=== PATIENT | male | born 1935 | race Caucasian/White ===

== ENCOUNTER → 2016-07-28 | Outpatient (REF) | payer MEDICARE | LOC: M LABDRAW1 15:35 | PROVIDERS: ATTEND Emergency Medicine | DX: R73.01 Impaired fasting glucose (principal) ==

== ENCOUNTER → 2016-10-19 | Outpatient (CLI) | payer MEDICARE ==
[2016-10-19 10:35] LABS: BASO % 0.6 % (0.0-1.0); EOS # 0.2 K/mm3 (0.0-0.50); EOS % 3.5 % (0.0-3.0); LARGE UNSTAINED CELL # 0.1 K/mm3 (0.0-0.4); LYMPH # 1.6 K/mm3 (1.5-4.5); LYMPH % 26.4 % (24.0-44.0); MEAN CORPUSCULAR HEMOGLOBIN 30.3 pg (27.0-33.0); MEAN CORPUSCULAR VOLUME 91.6 fl (80.0-96.0); MONO # 0.4 K/mm3 (0.0-0.8); MONO % 7.1 % (0.0-5.0); NEUTROPHILS # 3.4 K/mm3 (1.8-7.7); NEUTROPHILS % 60.4 % (36.0-66.0); PLATELET COUNT, AUTOMATED 149 k/mm3 (150-450); RED CELL DISTRIBUTION WIDTH 13.9 % (11.5-14.5); WHITE BLOOD COUNT 5.6 K/mm3 (4.0-10.0)
[2016-10-19 10:50] LABS: ALBUMIN 4.1 GM/DL (3.2-5.2); ALBUMIN/GLOBULIN RATIO 1.71 (1.00-1.93); ALKALINE PHOSPHATASE 57 U/L (45-117); ALT/SGPT 44 U/L (12-78); ANION GAP 7 MEQ/L (8-16); AST/SGOT 22 U/L (15-37); BILIRUBIN,TOTAL 2.4 MG/DL (0.2-1.0); BLOOD UREA NITROGEN 15 MG/DL (7-18); CALCIUM LEVEL 9.2 MG/DL (8.8-10.2); CARBON DIOXIDE LEVEL 28 MEQ/L (21-32); CHLORIDE LEVEL 106 MEQ/L (98-107); CHOLESTEROL LEVEL 115 MG/DL (<200); CREATININE FOR GFR 0.82 MG/DL (0.70-1.30); GLOMERULAR FILTRATION RATE > 60.0 (>42); GLUCOSE, FASTING 122 MG/DL (83-110); POTASSIUM SERUM 4.2 MEQ/L (3.5-5.1); SODIUM LEVEL 141 MEQ/L (136-145); TOTAL PROTEIN 6.5 GM/DL (6.4-8.2); TRIGLYCERIDES LEVEL 51 MG/DL (<150)
== END ==
LOC: M LAB 09:28
PROVIDERS: ATTEND Emergency Medicine
DX: E11.9 Type 2 diabetes mellitus without complications (principal); I63.02 Cerebral infarction due to thrombosis of basilar artery

== ENCOUNTER → 2016-11-29 | Outpatient (CLI) | payer MEDICARE | LOC: M WUC 11:49 | PROVIDERS: ATTEND Urology | DX: Z12.5 Encounter for screening for malignant neoplasm of prostate (principal) | CPT/HCPCS: 36415; G0103 ==

== ENCOUNTER → 2017-04-28 | Outpatient (REF) | payer MEDICARE ==
[2017-04-28 12:04] LABS: BASO % 0.7 % (0.0-1.0); EOS # 0.2 10^3/uL (0.0-0.50); EOS % 3.2 % (0.0-3.0); IMMATURE GRANULOCYTE % 0.2 % (0-0); LYMPH # 1.7 10^3/uL (1.5-4.5); LYMPH % 28.1 % (24.0-44.0); MEAN CORPUSCULAR HEMOGLOBIN 30.2 pg (27.0-33.0); MEAN CORPUSCULAR HGB CONC 33.3 g/dl (32.0-36.5); MEAN CORPUSCULAR VOLUME 90.7 fl (80.0-96.0); MONO # 0.5 10^3/uL (0.0-0.8); MONO % 8.8 % (0.0-5.0); NEUTROPHILS # 3.5 10^3/uL (1.8-7.7); PLATELET COUNT, AUTOMATED 161 10^3/uL (150-450); RED CELL DISTRIBUTION WIDTH 13.9 % (11.5-14.5); WHITE BLOOD COUNT 5.9 10^3/uL (4.0-10.0)
[2017-04-28 12:29] LABS: ALBUMIN 3.9 GM/DL (3.2-5.2); ALKALINE PHOSPHATASE 53 U/L (45-117); ALT/SGPT 40 U/L (12-78); ANION GAP 7 MEQ/L (8-16); AST/SGOT 17 U/L (15-37); BILIRUBIN,TOTAL 2.5 MG/DL (0.2-1.0); BLOOD UREA NITROGEN 15 MG/DL (7-18); CALCIUM LEVEL 9.2 MG/DL (8.8-10.2); CARBON DIOXIDE LEVEL 28 MEQ/L (21-32); CHLORIDE LEVEL 106 MEQ/L (98-107); CHOLESTEROL LEVEL 111 MG/DL (<200); CREATININE FOR GFR 0.73 MG/DL (0.70-1.30); GLOMERULAR FILTRATION RATE > 60.0 (>42); GLUCOSE, FASTING 115 MG/DL (83-110); POTASSIUM SERUM 4.3 MEQ/L (3.5-5.1); SODIUM LEVEL 141 MEQ/L (136-145); TOTAL PROTEIN 6.5 GM/DL (6.4-8.2); TRIGLYCERIDES LEVEL 58 MG/DL (<150)
== END ==
LOC: M LAB REF 11:26
PROVIDERS: ATTEND Emergency Medicine
DX: E11.9 Type 2 diabetes mellitus without complications (principal); I63.02 Cerebral infarction due to thrombosis of basilar artery

== ENCOUNTER → 2017-11-04 | Outpatient (REF) | payer MEDICARE ==
[2017-11-04 11:59] LABS: BASO % 0.6 % (0.0-1.0); EOS # 0.3 10^3/uL (0.0-0.50); EOS % 3.6 % (0.0-3.0); HEMATOCRIT 47.3 % (42.0-52.0); HEMOGLOBIN 15.9 g/dl (13.5-17.5); IMMATURE GRANULOCYTE % 0.4 % (0-3.0); LYMPH # 2.1 10^3/uL (1.5-4.5); LYMPH % 28.9 % (24.0-44.0); MEAN CORPUSCULAR HEMOGLOBIN 30.2 pg (27.0-33.0); MEAN CORPUSCULAR HGB CONC 33.6 g/dl (32.0-36.5); MEAN CORPUSCULAR VOLUME 89.8 fl (80.0-96.0); MONO # 0.6 10^3/uL (0.0-0.8); MONO % 8.8 % (0.0-5.0); NEUTROPHILS # 4.1 10^3/uL (1.8-7.7); NEUTROPHILS % 57.7 % (36.0-66.0); PLATELET COUNT, AUTOMATED 149 10^3/uL (150-450); RED BLOOD COUNT 5.27 10^6/uL (4.30-6.10); WHITE BLOOD COUNT 7.2 10^3/uL (4.0-10.0)
[2017-11-04 12:18] LABS: ALBUMIN 4.1 GM/DL (3.2-5.2); ALBUMIN/GLOBULIN RATIO 1.41 (1.00-1.93); ALKALINE PHOSPHATASE 58 U/L (45-117); ALT/SGPT 40 U/L (12-78); ANION GAP 6 MEQ/L (8-16); AST/SGOT 21 U/L (7-37); BILIRUBIN,TOTAL 2.6 MG/DL (0.2-1.0); BLOOD UREA NITROGEN 15 MG/DL (7-18); CALCIUM LEVEL 9.3 MG/DL (8.8-10.2); CARBON DIOXIDE LEVEL 30 MEQ/L (21-32); CHLORIDE LEVEL 107 MEQ/L (98-107); CHOLESTEROL LEVEL 113 MG/DL (<200); CHOLESTEROL RISK RATIO 1.712 (<5); CREATININE FOR GFR 0.89 MG/DL (0.70-1.30); GLOMERULAR FILTRATION RATE > 60.0 (>35); GLUCOSE, FASTING 118 MG/DL (70-100); HDL CHOLESTEROL 66 MG/DL (>40); LDL CHOLESTEROL 36.2 MG/DL (<100); NON-HDL-C 47 MG/DL; POTASSIUM SERUM 3.9 MEQ/L (3.5-5.1); SODIUM LEVEL 143 MEQ/L (136-145); TRIGLYCERIDES LEVEL 54 MG/DL (<150)
[2017-11-04 12:59] LABS: ESTIMATED AVERAGE GLUCOSE 128 MG/DL (60-110); HEMOGLOBIN A1c 6.1 %
== END ==
LOC: M LAB REF 11:45
DX: E11.9 Type 2 diabetes mellitus without complications (principal); I63.02 Cerebral infarction due to thrombosis of basilar artery
CPT/HCPCS: 80053

== ENCOUNTER → 2017-12-06 | Outpatient (REF) | payer MEDICARE | LOC: M LABDRAWC 11:38 | DX: Z12.5 Encounter for screening for malignant neoplasm of prostate (principal); R35.1 Nocturia | CPT/HCPCS: 84153 ==

== ENCOUNTER → 2018-05-09 | Outpatient (REF) | payer MEDICARE ==
[2018-05-09 11:53] LABS: BASO % 0.5 % (0.0-1.0); EOS # 0.2 10^3/uL (0.0-0.50); EOS % 2.6 % (0.0-3.0); HEMATOCRIT 48.8 % (42.0-52.0); HEMOGLOBIN 15.9 g/dl (13.5-17.5); IMMATURE GRANULOCYTE % 0.4 % (0-3.0); LYMPH # 1.9 10^3/uL (1.5-4.5); LYMPH % 33.3 % (24.0-44.0); MEAN CORPUSCULAR HEMOGLOBIN 30.2 pg (27.0-33.0); MEAN CORPUSCULAR HGB CONC 32.6 g/dl (32.0-36.5); MEAN CORPUSCULAR VOLUME 92.6 fl (80.0-96.0); MONO # 0.5 10^3/uL (0.0-0.8); MONO % 7.9 % (0.0-5.0); NEUTROPHILS # 3.1 10^3/uL (1.8-7.7); NEUTROPHILS % 55.3 % (36.0-66.0); PLATELET COUNT, AUTOMATED 148 10^3/uL (150-450); RED BLOOD COUNT 5.27 10^6/uL (4.30-6.10); RED CELL DISTRIBUTION WIDTH 13.9 % (11.5-14.5); WHITE BLOOD COUNT 5.7 10^3/uL (4.0-10.0)
[2018-05-09 19:17] LABS: ALBUMIN/GLOBULIN RATIO 1.48 (1.00-1.93); ALKALINE PHOSPHATASE 59 U/L (45-117); ALT/SGPT 40 U/L (12-78); ANION GAP 11 MEQ/L (8-16); AST/SGOT 24 U/L (7-37); BILIRUBIN,TOTAL 2.5 MG/DL (0.2-1.0); BLOOD UREA NITROGEN 16 MG/DL (7-18); CALCIUM LEVEL 9.3 MG/DL (8.8-10.2); CARBON DIOXIDE LEVEL 25 MEQ/L (21-32); CHLORIDE LEVEL 106 MEQ/L (98-107); CHOLESTEROL LEVEL 115 MG/DL (<200); CHOLESTEROL RISK RATIO 1.796 (<5); CREATININE FOR GFR 0.89 MG/DL (0.70-1.30); GLOMERULAR FILTRATION RATE > 60.0 (>35); GLUCOSE, FASTING 119 MG/DL (70-100); HDL CHOLESTEROL 64 MG/DL (>40); LDL CHOLESTEROL 40 MG/DL (<100); NON-HDL-C 51 MG/DL; POTASSIUM SERUM 4.1 MEQ/L (3.5-5.1); SODIUM LEVEL 142 MEQ/L (136-145); TOTAL PROTEIN 6.7 GM/DL (6.4-8.2); TRIGLYCERIDES LEVEL 57 MG/DL (<150)
[2018-05-09 23:35] LABS: ESTIMATED AVERAGE GLUCOSE 134 MG/DL (60-110); HEMOGLOBIN A1c 6.3 %
== END ==
LOC: M LABDRAWC 07:43
DX: E11.9 Type 2 diabetes mellitus without complications (principal); I63.02 Cerebral infarction due to thrombosis of basilar artery
CPT/HCPCS: 80053

== ENCOUNTER → 2018-10-26 | Outpatient (REF) | payer MEDICARE ==
[2018-10-26 12:42] LABS: BASO % 0.7 % (0.0-1.0); EOS # 0.2 10^3/uL (0.0-0.50); EOS % 3.3 % (0.0-3.0); HEMATOCRIT 46.7 % (42.0-52.0); HEMOGLOBIN 15.6 g/dl (13.5-17.5); LYMPH # 1.7 10^3/uL (1.5-4.5); LYMPH % 28.9 % (24.0-44.0); MEAN CORPUSCULAR HEMOGLOBIN 30.2 pg (27.0-33.0); MEAN CORPUSCULAR HGB CONC 33.4 g/dl (32.0-36.5); MEAN CORPUSCULAR VOLUME 90.5 fl (80.0-96.0); MONO # 0.5 10^3/uL (0.0-0.8); MONO % 8.4 % (0.0-5.0); NEUTROPHILS # 3.3 10^3/uL (1.8-7.7); NEUTROPHILS % 58.2 % (36.0-66.0); PLATELET COUNT, AUTOMATED 137 10^3/uL (150-450); RED BLOOD COUNT 5.16 10^6/uL (4.30-6.10); WHITE BLOOD COUNT 5.7 10^3/uL (4.0-10.0)
[2018-10-26 12:45] LABS: ALT/SGPT 38 U/L (12-78); BILIRUBIN,TOTAL 2.4 MG/DL (0.2-1.0); BLOOD UREA NITROGEN 17 MG/DL (7-18); CALCIUM LEVEL 9.1 MG/DL (8.8-10.2); CARBON DIOXIDE LEVEL 27 MEQ/L (21-32); CHLORIDE LEVEL 108 MEQ/L (98-107); CHOLESTEROL LEVEL 121 MG/DL (<200); CHOLESTEROL RISK RATIO 1.779 (<5); GLOMERULAR FILTRATION RATE > 60.0 (>35); GLUCOSE, FASTING 127 MG/DL (70-100); HDL CHOLESTEROL 68 MG/DL (>40); LDL CHOLESTEROL 44 MG/DL (<100); NON-HDL-C 53 MG/DL; POTASSIUM SERUM 4.2 MEQ/L (3.5-5.1); SODIUM LEVEL 141 MEQ/L (136-145); TOTAL PROTEIN 6.6 GM/DL (6.4-8.2); TRIGLYCERIDES LEVEL 43 MG/DL (<150)
[2018-10-26 13:27] LABS: HEMOGLOBIN A1c 6.4 %
== END ==
LOC: M LABDRAWC 11:46
PROVIDERS: ATTEND Emergency Medicine
DX: E11.9 Type 2 diabetes mellitus without complications (principal); I63.02 Cerebral infarction due to thrombosis of basilar artery

== ENCOUNTER → 2018-12-04 | Outpatient (REF) | payer MEDICARE | LOC: M LABDRAWC 11:30 | PROVIDERS: ATTEND Urology | DX: R97.20 Elevated prostate specific antigen [PSA] (principal) ==

== ENCOUNTER → 2019-05-03 | Outpatient (REF) | payer MEDICARE ==
[2019-05-03 12:03] LABS: BASO % 0.6 % (0.0-1.0); EOS # 0.2 10^3/uL (0.0-0.5); HEMATOCRIT 47.2 % (42.0-52.0); HEMOGLOBIN 15.5 g/dl (13.5-17.5); LYMPH # 1.7 10^3/uL (1.5-5.0); LYMPH % 31.4 % (24.0-44.0); MEAN CORPUSCULAR HEMOGLOBIN 30.1 pg (27.0-33.0); MEAN CORPUSCULAR HGB CONC 32.8 g/dl (32.0-36.5); MEAN CORPUSCULAR VOLUME 91.7 fl (80.0-96.0); MONO # 0.5 10^3/uL (0.0-0.8); MONO % 8.9 % (0.0-5.0); NEUTROPHILS % 55.7 % (36.0-66.0); PLATELET COUNT, AUTOMATED 128 10^3/uL (150-450); RED BLOOD COUNT 5.15 10^6/uL (4.30-6.10); WHITE BLOOD COUNT 5.4 10^3/uL (4.0-10.0)
[2019-05-03 12:07] LABS: ALBUMIN 3.9 GM/DL (3.2-5.2); ALT/SGPT 43 U/L (12-78); BILIRUBIN,TOTAL 2.3 MG/DL (0.2-1.0); BLOOD UREA NITROGEN 16 MG/DL (7-18); CALCIUM LEVEL 9.3 MG/DL (8.8-10.2); CARBON DIOXIDE LEVEL 31 MEQ/L (21-32); CHLORIDE LEVEL 108 MEQ/L (98-107); CHOLESTEROL LEVEL 109 MG/DL (<200); CHOLESTEROL RISK RATIO 1.626 (<5); CREATININE FOR GFR 0.88 MG/DL (0.70-1.30); GLOMERULAR FILTRATION RATE > 60.0 (>35); GLUCOSE, FASTING 128 MG/DL (70-100); HDL CHOLESTEROL 67 MG/DL (>40); LDL CHOLESTEROL 31 MG/DL (<100); NON-HDL-C 42 MG/DL; SODIUM LEVEL 142 MEQ/L (136-145); TOTAL PROTEIN 6.7 GM/DL (6.4-8.2); TRIGLYCERIDES LEVEL 55 MG/DL (<150)
[2019-05-03 12:59] LABS: HEMOGLOBIN A1c 6.4 %
[2019-05-03 17:24] LABS: CREATININE, URINE 86.7 MG/DL; MALB URINE SIEMENS 20.8 MG/L; MAU/CREAT RATIO 23.9 MCG/MG (0.0-30.0)
== END ==
LOC: M LABDRAWC 11:06
PROVIDERS: ATTEND Physician Assistant
DX: E11.69 Type 2 diabetes mellitus with other specified complication (principal); E78.2 Mixed hyperlipidemia; I48.0 Paroxysmal atrial fibrillation

== ENCOUNTER → 2019-06-11 | Outpatient (REF) | payer MEDICARE | LOC: M LABDRAWC 11:15 | PROVIDERS: ATTEND Urology | DX: R97.20 Elevated prostate specific antigen [PSA] (principal) ==

== ENCOUNTER → 2019-12-19 | Outpatient (REF) | payer MEDICARE ==
[2019-12-19 12:19] LABS: ALBUMIN 4.2 GM/DL (3.2-5.2); ALT/SGPT 60 U/L (12-78); BILIRUBIN,TOTAL 3.4 MG/DL (0.2-1.0); BLOOD UREA NITROGEN 15 MG/DL (7-18); CALCIUM LEVEL 9.2 MG/DL (8.8-10.2); CARBON DIOXIDE LEVEL 28 MEQ/L (21-32); CHLORIDE LEVEL 107 MEQ/L (98-107); CREATININE FOR GFR 0.92 MG/DL (0.70-1.30); GLOMERULAR FILTRATION RATE > 60.0 (>35); GLUCOSE, FASTING 133 MG/DL (70-100); SODIUM LEVEL 142 MEQ/L (136-145); TOTAL PROTEIN 6.8 GM/DL (6.4-8.2)
[2019-12-19 13:04] LABS: HEMOGLOBIN A1c 6.6 %
== END ==
LOC: M LABDRAWC 10:51
PROVIDERS: ATTEND Physician Assistant
DX: E11.69 Type 2 diabetes mellitus with other specified complication (principal)

== ENCOUNTER → 2020-03-13 | Outpatient (REF) | payer MEDICARE ==
[2020-03-13 15:14] LABS: BLOOD UREA NITROGEN 15 MG/DL (7-18); CALCIUM LEVEL 9.4 MG/DL (8.8-10.2); CARBON DIOXIDE LEVEL 27 MEQ/L (21-32); CHLORIDE LEVEL 107 MEQ/L (98-107); CREATININE FOR GFR 0.92 MG/DL (0.70-1.30); GLOMERULAR FILTRATION RATE > 60.0 (>35); GLUCOSE, FASTING 122 MG/DL (70-100); POTASSIUM SERUM 3.9 MEQ/L (3.5-5.1); SODIUM LEVEL 140 MEQ/L (136-145)
[2020-03-13 15:40] LABS: HEMOGLOBIN A1c 6.4 %
[2020-03-13 20:18] LABS: CREATININE, URINE 88.5 MG/DL; MALB URINE SIEMENS 90.2 MG/L; MAU/CREAT RATIO 101.9 MCG/MG (0.0-30.0)
== END ==
LOC: M LABDRAWC 07:45
PROVIDERS: ATTEND Nurse Practitioner Family
DX: E11.69 Type 2 diabetes mellitus with other specified complication (principal); I10 Essential (primary) hypertension

== ENCOUNTER → 2021-03-18 | Outpatient (REF) | payer MEDICARE ==
[2021-03-18 17:36] LABS: CREATININE, URINE 88.6 MG/DL; MAU/CREAT RATIO 68.8 MCG/MG (0.0-30.0)
== END ==
LOC: M LAB REF 15:47
PROVIDERS: ATTEND Family Medicine
DX: E11.69 Type 2 diabetes mellitus with other specified complication (principal)

== ENCOUNTER → 2021-08-13 | Outpatient (CLI) | payer MEDICARE | LOC: M CLY 09:16 | PROVIDERS: ATTEND Family Medicine | DX: R06.02 Shortness of breath (principal) ==

== ENCOUNTER 2021-09-02 07:48 | Observation (INO) | payer MEDICARE ==
[2021-09-02 08:31] LABS: BASO % 0.7 % (0.0-1.0); EOS # 0.1 10^3/uL (0.0-0.5); EOS % 0.9 % (0.0-3.0); HEMATOCRIT 47.4 % (42.0-52.0); HEMOGLOBIN 15.3 g/dl (13.5-17.5); LYMPH # 0.7 10^3/uL (1.5-5.0); LYMPH % 12.6 % (24.0-44.0); MEAN CORPUSCULAR HEMOGLOBIN 28.8 pg (27.0-33.0); MEAN CORPUSCULAR HGB CONC 32.3 g/dl (32.0-36.5); MEAN CORPUSCULAR VOLUME 89.1 fl (80.0-96.0); MONO # 0.3 10^3/uL (0.0-0.8); MONO % 5.6 % (2.0-8.0); NEUTROPHILS # 4.7 10^3/uL (1.5-8.5); NEUTROPHILS % 79.9 % (36.0-66.0); PLATELET COUNT, AUTOMATED 116 10^3/uL (150-450); RED BLOOD COUNT 5.32 10^6/uL (4.30-6.10); WHITE BLOOD COUNT 5.9 10^3/uL (4.0-10.0)
[2021-09-02] MEDS ORDERED: FINA5TAB2 PO (08:34)
[2021-09-02] MEDS ORDERED: ELIQ5TAB PO (08:34)
[2021-09-02] MEDS ORDERED: METO1TAB87 PO (08:34)
[2021-09-02] MEDS ORDERED: ATOR40TA75 PO (08:34)
[2021-09-02] MEDS ORDERED: LISI5TAB11 PO (08:34)
[2021-09-02] MEDS ORDERED: DOCU-160 PO (08:34)
[2021-09-02] MEDS ORDERED: B-12100010 PO (08:34)
[2021-09-02] MEDS ORDERED: MULT1TAB8 PO (08:34)
[2021-09-02 08:40] LABS: INR 1.29; PROTHROMBIN TIME 16.5 SECONDS (12.7-14.5)
[2021-09-02 08:41] LABS: PARTIAL THROMBOPLASTIN TIME 35.9 SECONDS (25.9-37.0)
[2021-09-02 09:11] LABS: RSV AMPLIFICATION NEGATIVE (NEGATIVE)
[2021-09-02] MEDS ORDERED: METOPROLOL TART 25 MG TABLET PO ONE (09:25)
[2021-09-02] MEDS ORDERED: ISOVUE-370 76% 100ML VIAL As Ordered ONE (09:25)
[2021-09-02] MEDS ORDERED: APIXABAN 5 MG TAB (ELIQUIS) PO ONE (09:25)
[2021-09-02] MEDS ORDERED: PILL CUTTER 1 EACH XX ONE ×2 (09:55→09:56)
[2021-09-02] MEDS ORDERED: hydrALAZINE 20MG/ML 1ML VIAL (J0360 PER 20MG) IV PRN ×2 (12:15→17:30)
[2021-09-02] MEDS ORDERED: HOME MED LIST COMPLETE! XX SCH (16:45)
[2021-09-02] MEDS ORDERED: ALBU8.5H INH (16:45)
[2021-09-02] MEDS ORDERED: ALBUTEROL 90 MCG/ACT 8GM HFA INHALER INH PRN (16:55)
[2021-09-02] MEDS ORDERED: ACETAMINOPHEN TAB 650MG DOSE (2X325MG) PO PRN (17:30)
[2021-09-02] MEDS ORDERED: ASPIRIN 81 MG CHEW TABLET PO ONE (17:30)
[2021-09-02 18:23] LABS: CHOLESTEROL RISK RATIO 1.614 (<5); MAGNESIUM LEVEL 2.1 MG/DL (1.8-2.4)
[2021-09-02 19:46] LABS: HEMOGLOBIN A1c 6.5 %
[2021-09-02] MEDS ORDERED: ATORVASTATIN 20 MG TAB PO SCH ×2 (21:00)
[2021-09-02 21:07] VITALS: BP 138/90
[2021-09-02] MEDS: METOPROLOL TART 12.5 MG PER 1/2 TAB PO SCH (21:15)
[2021-09-02] MEDS: APIXABAN 5 MG TAB (ELIQUIS) PO SCH (21:16)
[2021-09-03 00:10] VITALS: BP 156/86
[2021-09-03 04:00] LABS: HEMATOCRIT 42.3 % (42.0-52.0); HEMOGLOBIN 13.7 g/dl (13.5-17.5); MEAN CORPUSCULAR HGB CONC 32.4 g/dl (32.0-36.5); MEAN CORPUSCULAR VOLUME 89.4 fl (80.0-96.0); PLATELET COUNT, AUTOMATED 105 10^3/uL (150-450); RED BLOOD COUNT 4.73 10^6/uL (4.30-6.10); WHITE BLOOD COUNT 5.1 10^3/uL (4.0-10.0)
[2021-09-03 04:13] LABS: BLOOD UREA NITROGEN 17 MG/DL (7-18); CALCIUM LEVEL 8.7 MG/DL (8.8-10.2); CARBON DIOXIDE LEVEL 28 MEQ/L (21-32); CHLORIDE LEVEL 108 MEQ/L (98-107); CREATININE FOR GFR 0.98 MG/DL (0.70-1.30); GLOMERULAR FILTRATION RATE > 60.0 (>35); GLUCOSE, FASTING 114 MG/DL (70-100); MAGNESIUM LEVEL 1.9 MG/DL (1.8-2.4); POTASSIUM SERUM 3.9 MEQ/L (3.5-5.1); SODIUM LEVEL 142 MEQ/L (136-145)
[2021-09-03 04:17] VITALS: BP 145/90
[2021-09-03 08:00] VITALS: BP 150/98
[2021-09-03] MEDS ORDERED: ASPI81CH8 PO (08:31)
[2021-09-03] MEDS ORDERED: ATOR80TA59 PO (08:31)
[2021-09-03] MEDS: METOPROLOL TART 12.5 MG PER 1/2 TAB PO SCH (08:58)
[2021-09-03 08:59] VITALS: BP 158/98
[2021-09-03] MEDS ORDERED: ASPIRIN 81 MG CHEW TABLET PO SCH (09:00)
[2021-09-03] MEDS ORDERED: lisinopriL 5 MG TAB PO SCH (09:00)
[2021-09-03] MEDS ORDERED: DOCUSATE SODIUM 100MG CAPSULE PO SCH (09:00)
[2021-09-03] MEDS ORDERED: FINASTERIDE 5 MG TAB PO SCH (09:00)
[2021-09-03] MEDS ORDERED: CYANOCOBALAMIN 500 MCG TAB PO SCH (09:00)
[2021-09-03] MEDS: APIXABAN 5 MG TAB (ELIQUIS) PO SCH (09:00)
== END 2021-09-03 10:41 | disposition home or self-care (01) ==
LOC: M ED 07:48 → M ED INP 07:49 → ENRESERV 19:43 → M PCU 20:59
PROVIDERS: ADMIT Internal Medicine; ATTEND Internal Medicine
DX: I63.89 Other cerebral infarction (principal); I16.0 Hypertensive urgency; I48.20 Chronic atrial fibrillation, unspecified; E78.5 Hyperlipidemia, unspecified; N40.0 Benign prostatic hyperplasia without lower urinary tract symptoms; I10 Essential (primary) hypertension; K59.09 Other constipation; E53.8 Deficiency of other specified B group vitamins; R60.0 Localized edema; Z86.73 Personal history of transient ischemic attack (TIA), and cerebral infarction without residual deficits; Z79.899 Other long term (current) drug therapy; Z79.82 Long term (current) use of aspirin; Z79.01 Long term (current) use of anticoagulants; Z88.1 Allergy status to other antibiotic agents
CPT/HCPCS: 36415; 70450; 70496; 70498; 70551; 71045; 80047; 80048; 80061; 83036; 83735; 84484; 85025; 85027; 85610; 85730; 87631; 93005; 93041; 93971; 94760; 97116; 97161; 99285; G0378; Q9967

== ENCOUNTER → 2021-09-04 | Outpatient (CLI) | payer MEDICARE ==
[~2021-09-04] MED LIST: ALBU8.5H INH; ASPI81CH8 PO; ATOR40TA75 PO; ATOR80TA59 PO; B-12100010 PO; DOCU-160 PO; ELIQ5TAB PO; FINA5TAB2 PO; LISI5TAB11 PO; METO1TAB87 PO; MULT1TAB8 PO
== END ==
LOC: M CARPUL 11:05
PROVIDERS: ATTEND Nurse Practitioner Family
DX: I48.91 Unspecified atrial fibrillation (principal)

== ENCOUNTER → 2021-10-27 | Outpatient (REF) | payer MEDICARE ==
[2021-10-27 17:57] LABS: ALBUMIN 3.8 GM/DL (3.2-5.2); ALT/SGPT 42 U/L (12-78); BILIRUBIN,TOTAL 3.6 MG/DL (0.2-1.0); BLOOD UREA NITROGEN 24 MG/DL (7-18); CALCIUM LEVEL 9.3 MG/DL (8.8-10.2); CARBON DIOXIDE LEVEL 29 MEQ/L (21-32); CHLORIDE LEVEL 105 MEQ/L (98-107); CREATININE FOR GFR 1.14 MG/DL (0.70-1.30); FREE T4 1.09 NG/DL (0.76-1.46); GLOMERULAR FILTRATION RATE > 60.0 (>35); GLUCOSE, FASTING 163 MG/DL (70-100); POTASSIUM SERUM 4.2 MEQ/L (3.5-5.1); SODIUM LEVEL 140 MEQ/L (136-145); TOTAL PROTEIN 6.4 GM/DL (6.4-8.2)
== END ==
LOC: M LABDRAWC 15:34
PROVIDERS: ATTEND Nurse Practitioner Family
DX: R94.5 Abnormal results of liver function studies (principal); E04.1 Nontoxic single thyroid nodule

== ENCOUNTER → 2021-11-03 | Outpatient (CLI) | payer MEDICARE | LOC: M WHC 13:57 | PROVIDERS: ATTEND Nurse Practitioner Family | DX: E04.1 Nontoxic single thyroid nodule (principal) ==

== ENCOUNTER → 2022-01-13 | Outpatient (CLI) | payer MEDICARE | LOC: M WHC 01-08 13:37 | PROVIDERS: ATTEND Nurse Practitioner Family | DX: R10.2 Pelvic and perineal pain (principal) ==

== ENCOUNTER → 2022-01-19 | Outpatient (CLI) | payer MEDICARE | LOC: M CLY 09:47 | PROVIDERS: ATTEND Nurse Practitioner Family | DX: R29.6 Repeated falls (principal) ==

== ENCOUNTER → 2022-06-14 | Outpatient (REF) | payer MEDICARE ==
[2022-06-14 13:36] LABS: CHLORIDE LEVEL 104 MMOL/L (98-107); SODIUM LEVEL 142 MMOL/L (136-145)
[2022-06-14 13:37] LABS: CARBON DIOXIDE LEVEL 26 MMOL/L (20-31)
[2022-06-14 13:40] LABS: BLOOD UREA NITROGEN 23 MG/DL (9-23)
[2022-06-14 13:42] LABS: CALCIUM LEVEL 9.6 MG/DL (8.3-10.6); GLUCOSE, FASTING 122 MG/DL (74-106)
[2022-06-14 13:44] LABS: CREATININE FOR GFR 0.93 MG/DL (0.70-1.30); GLOMERULAR FILTRATION RATE > 60.0 (>35)
[2022-06-14 13:52] LABS: POTASSIUM SERUM 4.2 MMOL/L (3.5-5.1)
[2022-06-14 14:15] LABS: CREATININE, URINE 76.3 MG/DL
[2022-06-14 14:16] LABS: MAU/CREAT RATIO 22.2 MCG/MG (0.0-30.0)
[2022-06-14 19:57] LABS: HEMOGLOBIN A1c 6.6 % (4.0-6.0)
== END ==
LOC: M LABDRAWC 11:13
PROVIDERS: ATTEND Family Medicine
DX: E11.9 Type 2 diabetes mellitus without complications (principal)

== ENCOUNTER → 2022-06-22 | Outpatient (CLI) | payer MEDICARE | LOC: M PLAIMG 12:03 | PROVIDERS: ATTEND Nurse Practitioner Family | DX: M54.50 Low back pain, unspecified (principal) ==

== ENCOUNTER → 2022-10-28 | Outpatient (REF) | payer MEDICARE ==
[2022-10-28 11:58] LABS: BASO % 0.5 % (0.0-1.0); EOS # 0.2 10^3/uL (0.0-0.5); EOS % 2.3 % (0.0-3.0); HEMATOCRIT 46.8 % (42.0-52.0); HEMOGLOBIN 14.9 g/dl (13.5-17.5); LYMPH # 1.3 10^3/uL (1.5-5.0); LYMPH % 16.3 % (24.0-44.0); MEAN CORPUSCULAR HEMOGLOBIN 29.6 pg (27.0-33.0); MEAN CORPUSCULAR HGB CONC 31.8 g/dl (32.0-36.5); MONO # 0.6 10^3/uL (0.0-0.8); NEUTROPHILS # 5.9 10^3/uL (1.5-8.5); NEUTROPHILS % 73.4 % (36.0-66.0); PLATELET COUNT, AUTOMATED 120 10^3/uL (150-450); RED BLOOD COUNT 5.03 10^6/uL (4.30-6.10)
== END ==
LOC: M LABDRAWC 11:02
PROVIDERS: ATTEND Nurse Practitioner Family
DX: K13.79 Other lesions of oral mucosa (principal)

== ENCOUNTER 2022-11-04 10:50 | Inpatient (IN) | payer MEDICARE ==
[~2022-11-04] VITALS: Ht 193 cm; Wt 81.0 kg
[2022-11-04] MEDS ORDERED: FURO20TA2 PO (11:26)
[2022-11-04 11:27] VITALS: BP 135/100
[2022-11-04 11:37] LABS: BASO % 0.4 % (0.0-1.0); EOS # 0.1 10^3/uL (0.0-0.5); EOS % 0.7 % (0.0-3.0); HEMATOCRIT 46.8 % (42.0-52.0); HEMOGLOBIN 15.6 g/dl (13.5-17.5); LYMPH # 0.9 10^3/uL (1.5-5.0); LYMPH % 11.9 % (24.0-44.0); MEAN CORPUSCULAR HGB CONC 33.3 g/dl (32.0-36.5); MONO # 0.5 10^3/uL (0.0-0.8); MONO % 7.2 % (2.0-8.0); NEUTROPHILS % 79.4 % (36.0-66.0); WHITE BLOOD COUNT 7.5 10^3/uL (4.0-10.0)
[2022-11-04 11:50] LABS: INR 1.23; PROTHROMBIN TIME 15.8 SECONDS (12.5-14.5)
[2022-11-04 11:51] LABS: PARTIAL THROMBOPLASTIN TIME 24.7 SECONDS (24.8-34.2)
[2022-11-04 12:01] LABS: CK-MB VALUE MASS 1.6 NG/ML (<3.6)
[2022-11-04 12:07] LABS: MB/CK RELATIVE INDEX 1.92 (< OR =4)
[2022-11-04 12:42] LABS: RSV AMPLIFICATION NEGATIVE (NEGATIVE)
[2022-11-04 13:11] LABS: BLOOD UREA NITROGEN 13 MG/DL (9-23); CALCIUM LEVEL 9.3 MG/DL (8.3-10.6); CARBON DIOXIDE LEVEL 26 MMOL/L (20-31); CHLORIDE LEVEL 103 MMOL/L (98-107); CREATININE FOR GFR 0.71 MG/DL (0.70-1.30); GLOMERULAR FILTRATION RATE > 60.0 (>35); GLUCOSE, FASTING 179 MG/DL (74-106); SODIUM LEVEL 135 MMOL/L (136-145)
[2022-11-04] MEDS ORDERED: ECOT81TA5 PO (14:30)
[2022-11-04] MEDS ORDERED: ATOR40TA75 PO (14:30)
[2022-11-04] MEDS ORDERED: MULT400T10 PO (14:30)
[2022-11-04] MEDS ORDERED: D 101000 PO (14:30)
[2022-11-04] MEDS ORDERED: PERI12LIQ SSP (14:30)
[2022-11-04] MEDS ORDERED: [UNRECOGNIZED DRUG - CODE] PO (14:30)
[2022-11-04] MEDS ORDERED: METF-838 PO (14:30)
[2022-11-04] MEDS ORDERED: HOME MED LIST COMPLETE! XX SCH (14:35)
[2022-11-04] MEDS ORDERED: ALBUTEROL 90 MCG/ACT 8GM HFA INHALER INH PRN (14:50)
[2022-11-04] MEDS ORDERED: GLUCAGON INJ 1MG VIAL SC PRN (15:10)
[2022-11-04] MEDS ORDERED: GLUCOSE 4GM CHEW TABLET PO PRN (15:10)
[2022-11-04] MEDS ORDERED: DEXTROSE 50% 50ML SYRINGE IV PRN (15:10)
[2022-11-04 15:52] VITALS: BP 178/106
[2022-11-04 17:21] LABS: FREE T4 1.17 NG/DL (0.89-1.76); THYROID STIMULATING HORMONE 0.749 uIU/ML (0.55-4.78)
[2022-11-04] MEDS ORDERED: PROHANCE 279.3MG/ML 5ML VIAL As Ordered ONE (17:21)
[2022-11-04] MEDS ORDERED: PROHANCE 279.3MG/ML 15ML VIAL As Ordered ONE (17:22)
[2022-11-04] MEDS: INSULIN LISPRO (NovoLOG) PER UNIT SC SCH (17:30)
[2022-11-04 18:42] VITALS: BP 168/98
[2022-11-04] MEDS: ASPIRIN 81MG ENTERIC TABLET PO SCH (18:44)
[2022-11-04 20:00] VITALS: BP 174/100
[2022-11-04] MEDS: APIXABAN 5 MG TAB (ELIQUIS) PO SCH (20:29)
[2022-11-04] MEDS: METOPROLOL TART 12.5 MG PER 1/2 TAB PO SCH (20:50)
[2022-11-04] MEDS ORDERED: INSULIN LISPRO (NovoLOG) PER UNIT SC SCH (21:00)
[2022-11-04] MEDS ORDERED: ATORVASTATIN 20 MG TAB PO SCH (21:00)
[2022-11-04 22:00] VITALS: BP 166/108
[2022-11-04] MEDS ORDERED: amLODIPine 5 MG TAB PO ONE (22:35)
[2022-11-05] VITALS: BP 168/110
[2022-11-05] MEDS ORDERED: hydroCHLOROthiazide 12.5 MG CAPSULE PO ONE (01:00)
[2022-11-05 02:20] VITALS: BP 176/118
[2022-11-05 04:00] VITALS: BP 180/112
[2022-11-05 05:45] VITALS: BP 166/98
[2022-11-05 08:24] VITALS: BP 158/62
[2022-11-05 08:33] LABS: BLOOD UREA NITROGEN 13 MG/DL (9-23); CALCIUM LEVEL 9.2 MG/DL (8.3-10.6); CARBON DIOXIDE LEVEL 26 MMOL/L (20-31); CHLORIDE LEVEL 101 MMOL/L (98-107); CREATININE FOR GFR 0.74 MG/DL (0.70-1.30); GLOMERULAR FILTRATION RATE > 60.0 (>35); GLUCOSE, FASTING 168 MG/DL (74-106); POTASSIUM SERUM 3.8 MMOL/L (3.5-5.1); SODIUM LEVEL 135 MMOL/L (136-145)
[2022-11-05] MEDS: INSULIN LISPRO (NovoLOG) PER UNIT SC SCH (08:39)
[2022-11-05] MEDS: METOPROLOL TART 12.5 MG PER 1/2 TAB PO SCH (08:54)
[2022-11-05] MEDS: ASPIRIN 81MG ENTERIC TABLET PO SCH (08:54)
[2022-11-05 08:55] VITALS: BP 158/62
[2022-11-05] MEDS: APIXABAN 5 MG TAB (ELIQUIS) PO SCH (08:55)
[2022-11-05] MEDS ORDERED: DOCUSATE SODIUM 100MG CAPSULE PO SCH (09:00)
[2022-11-05] MEDS ORDERED: lisinopriL 5 MG TAB PO SCH (09:00)
[2022-11-05] MEDS ORDERED: FINASTERIDE 5MG TAB PO SCH (09:00)
[2022-11-05] MEDS ORDERED: CYANOCOBALAMIN 500 MCG TAB PO SCH (09:00)
[2022-11-05] MEDS ORDERED: LISI20TA33 PO (09:39)
== END 2022-11-05 12:13 | disposition home or self-care (01) | DRG 123 ==
LOC: M ED 10:50 → M ED INP 14:41 → M PCU 15:52
PROVIDERS: ADMIT Internal Medicine; ATTEND Family Medicine
DX: H53.2 Diplopia (principal); I48.20 Chronic atrial fibrillation, unspecified; R04.2 Hemoptysis; R51.9 Headache, unspecified; I11.9 Hypertensive heart disease without heart failure; E78.5 Hyperlipidemia, unspecified; R19.09 Other intra-abdominal and pelvic swelling, mass and lump; R73.03 Prediabetes; N40.0 Benign prostatic hyperplasia without lower urinary tract symptoms; K64.9 Unspecified hemorrhoids; R91.8 Other nonspecific abnormal finding of lung field; E53.8 Deficiency of other specified B group vitamins; H26.9 Unspecified cataract; Z86.73 Personal history of transient ischemic attack (TIA), and cerebral infarction without residual deficits; Z87.891 Personal history of nicotine dependence; Z79.01 Long term (current) use of anticoagulants; Z79.82 Long term (current) use of aspirin; Z79.84 Long term (current) use of oral hypoglycemic drugs; Z79.899 Other long term (current) drug therapy; Z88.1 Allergy status to other antibiotic agents

== ENCOUNTER → 2022-11-29 | Outpatient (CLI) | payer MEDICARE ==
[~2022-11-29] MED LIST changes: +D 101000 PO; +ECOT81TA5 PO; +FURO20TA2 PO; +LISI20TA33 PO; +METF-838 PO; +MULT400T10 PO; +PERI12LIQ SSP; +[UNRECOGNIZED DRUG - CODE] PO
== END ==
LOC: M PLARAD 11:25
PROVIDERS: ATTEND Internal Medicine Pulmonary Disease
DX: R91.8 Other nonspecific abnormal finding of lung field (principal)
CPT/HCPCS: 78815; A9552

== ENCOUNTER → 2022-12-09 | Outpatient (REF) | payer MEDICARE ==
[2022-12-09 12:05] LABS: BLOOD UREA NITROGEN 19 MG/DL (9-23); CALCIUM LEVEL 9.5 MG/DL (8.3-10.6); CARBON DIOXIDE LEVEL 30 MMOL/L (20-31); CHLORIDE LEVEL 105 MMOL/L (98-107); CREATININE FOR GFR 0.94 MG/DL (0.70-1.30); GLOMERULAR FILTRATION RATE > 60.0 (>35); GLUCOSE, FASTING 137 MG/DL (74-106); POTASSIUM SERUM 4.3 MMOL/L (3.5-5.1); SODIUM LEVEL 140 MMOL/L (136-145)
[2022-12-09 12:12] LABS: HEMOGLOBIN A1c 6.8 % (4.0-6.0)
== END ==
LOC: M LABDRAWC 11:13
PROVIDERS: ATTEND Nurse Practitioner Family
DX: E11.9 Type 2 diabetes mellitus without complications (principal)

== ENCOUNTER → 2022-12-24 | Outpatient (CLI) | payer MEDICARE | LOC: M ONCR 10:21 | PROVIDERS: ATTEND General Practice | DX: R91.1 Solitary pulmonary nodule (principal); H53.2 Diplopia; R19.09 Other intra-abdominal and pelvic swelling, mass and lump; E78.5 Hyperlipidemia, unspecified; I10 Essential (primary) hypertension; I48.0 Paroxysmal atrial fibrillation; Z71.2 Person consulting for explanation of examination or test findings; Z79.01 Long term (current) use of anticoagulants; Z79.84 Long term (current) use of oral hypoglycemic drugs; Z79.899 Other long term (current) drug therapy; Z80.0 Family history of malignant neoplasm of digestive organs; Z80.1 Family history of malignant neoplasm of trachea, bronchus and lung; Z86.73 Personal history of transient ischemic attack (TIA), and cerebral infarction without residual deficits; Z88.1 Allergy status to other antibiotic agents ==

== ENCOUNTER → 2023-01-31 | Outpatient (REF) | payer MEDICARE ==
[~2023-01-31] MED LIST changes: +BUSP5TA; +RAME8TAB2; +SILO8CAP
== END ==
LOC: M LABDRAWC 11:21
PROVIDERS: ATTEND Urology
DX: R97.20 Elevated prostate specific antigen [PSA] (principal)

== ENCOUNTER → 2023-02-02 | Outpatient (REF) | payer MEDICARE ==
[2023-02-02 12:14] LABS: BASO % 0.8 % (0.0-1.0); EOS # 0.1 10^3/uL (0.0-0.5); EOS % 2.4 % (0.0-3.0); HEMATOCRIT 45.6 % (42.0-52.0); HEMOGLOBIN 14.5 g/dl (13.5-17.5); LYMPH # 1.1 10^3/uL (1.5-5.0); LYMPH % 21.2 % (24.0-44.0); MEAN CORPUSCULAR HEMOGLOBIN 29.5 pg (27.0-33.0); MEAN CORPUSCULAR HGB CONC 31.8 g/dl (32.0-36.5); MEAN CORPUSCULAR VOLUME 92.9 fl (80.0-96.0); MONO # 0.4 10^3/uL (0.0-0.8); MONO % 7.9 % (2.0-8.0); NEUTROPHILS # 3.4 10^3/uL (1.5-8.5); NEUTROPHILS % 67.5 % (36.0-66.0); PLATELET COUNT, AUTOMATED 111 10^3/uL (150-450); RED BLOOD COUNT 4.91 10^6/uL (4.30-6.10); WHITE BLOOD COUNT 5.1 10^3/uL (4.0-10.0)
== END ==
LOC: M LABDRAWC 11:25
PROVIDERS: ATTEND Nurse Practitioner Family
DX: R04.2 Hemoptysis (principal)

== ENCOUNTER 2023-02-07 10:21 | Outpatient (RCR) | payer MEDICARE | END 2023-02-14 | LOC: M ONCR 10:21 | PROVIDERS: ATTEND General Practice | DX: C34.11 Malignant neoplasm of upper lobe, right bronchus or lung (principal) ==

== ENCOUNTER 2023-02-22 14:40 | Outpatient (RCR) | payer MEDICARE | END 2023-03-17 | LOC: M ONCR 14:40 | PROVIDERS: ATTEND General Practice | DX: Z51.0 Encounter for antineoplastic radiation therapy (principal); C34.11 Malignant neoplasm of upper lobe, right bronchus or lung ==

== ENCOUNTER → 2023-05-24 | Outpatient (CLI) | payer MEDICARE | LOC: M PLAIMG 12:35 | PROVIDERS: ATTEND General Practice | DX: C34.90 Malignant neoplasm of unspecified part of unspecified bronchus or lung (principal) ==

== ENCOUNTER → 2023-05-31 | Outpatient (CLI) | payer MEDICARE | LOC: M ONCR 14:36 | PROVIDERS: ATTEND General Practice | DX: C34.11 Malignant neoplasm of upper lobe, right bronchus or lung (principal); Z87.891 Personal history of nicotine dependence; Z79.01 Long term (current) use of anticoagulants; Z86.79 Personal history of other diseases of the circulatory system; Z86.73 Personal history of transient ischemic attack (TIA), and cerebral infarction without residual deficits; R19.09 Other intra-abdominal and pelvic swelling, mass and lump; Z88.1 Allergy status to other antibiotic agents; Z79.84 Long term (current) use of oral hypoglycemic drugs; Z79.82 Long term (current) use of aspirin; Z79.899 Other long term (current) drug therapy; Z71.2 Person consulting for explanation of examination or test findings ==

== ENCOUNTER 2023-08-16 06:19 | Day surgery (SDC) | payer MEDICARE, OTHER ==
[~2023-08-16] VITALS: Ht 186.7 cm; Wt 78.0 kg
[~2023-08-16 06:19] MED LIST changes: -BUSP5TA; +BUSP5TA PO; -RAME8TAB2; +RAME8TAB2 PO; -SILO8CAP; +SILO8CAP PO
[2023-08-16] MEDS: PROPARACAINE 0.5% OPHTH SOL 15ML OD ONE (06:30)
[2023-08-16] MEDS: TOBRAMYCIN 0.3% OPHTH SOLN 5ML OD SCH (06:49)
[2023-08-16] MEDS: PHENYLEPHRINE 2.5% OPHTH SOL 2ML OD SCH (06:49)
[2023-08-16] MEDS: TROPICAMIDE 1% OPHTH SOLN 15ML OD SCH (06:49)
[2023-08-16] MEDS: CYCLOPENTOLATE 1% OPHTH SOLN 2ML BTL OD SCH (06:49)
[2023-08-16] MEDS ORDERED: MIDAZOLAM INJ 2MG/2ML VIAL As Ordered ONE (07:35)
[2023-08-16] MEDS ORDERED: fentaNYL 100 MCG/2 ML INJECTION As Ordered ONE (07:35)
[2023-08-16] MEDS: CEFUROXIME 1MG/0.1ML INTRACAMERAL INJ As Ordered ONE (07:43)
[2023-08-16] MEDS: BSS IRR 500ML/OMIDRIA 4ML IRR BAG (OR ONLY) As Ordered ONE (07:43)
[2023-08-16] MEDS: LIDOCAINE 1% SDV 5ML VIAL As Ordered ONE (07:43)
[2023-08-16] MEDS: TOBRADEX OPHTH OINT 3.5 GM As Ordered ONE (08:01)
[2023-08-16 08:02] VITALS: BP 142/76; TEMP 98.2; O2SAT 100
== END 2023-08-16 08:20 | disposition home or self-care (01) ==
LOC: M SDC 06:19
PROVIDERS: ATTEND Ophthalmology
DX: H25.11 Age-related nuclear cataract, right eye (principal); H40.1111 Primary open-angle glaucoma, right eye, mild stage; E11.9 Type 2 diabetes mellitus without complications; I10 Essential (primary) hypertension; I48.0 Paroxysmal atrial fibrillation; Z86.73 Personal history of transient ischemic attack (TIA), and cerebral infarction without residual deficits; N40.0 Benign prostatic hyperplasia without lower urinary tract symptoms; M19.90 Unspecified osteoarthritis, unspecified site; Z87.891 Personal history of nicotine dependence; Z79.899 Other long term (current) drug therapy; Z79.84 Long term (current) use of oral hypoglycemic drugs; Z79.01 Long term (current) use of anticoagulants
CPT/HCPCS: 66183; 66984; C1783; J0697; J1097; J2250; J3010; V2632

== ENCOUNTER 2023-09-20 06:17 | Day surgery (SDC) | payer MEDICARE, OTHER ==
[~2023-09-20] VITALS: Ht 185.4 cm; Wt 78.9 kg
[2023-09-20] MEDS ORDERED: fentaNYL 100 MCG/2 ML INJECTION As Ordered ONE (06:52)
[2023-09-20] MEDS: PROPARACAINE 0.5% OPHTH SOL 15ML OS ONE (07:15)
[2023-09-20] MEDS: OFLOXACIN 0.3 % (OCUFLOX) OPTH SOL 5ML OS SCH (07:35)
[2023-09-20] MEDS: PHENYLEPHRINE 2.5% OPHTH SOL 2ML OS SCH (07:35)
[2023-09-20] MEDS: TROPICAMIDE 1% OPHTH SOLN 15ML OS SCH (07:35)
[2023-09-20] MEDS: ATROPINE SULFATE 1% OPHTH SOLN 2ML BTL OS SCH (07:35)
[2023-09-20] MEDS: BSS IRR 500ML/OMIDRIA 4ML IRR BAG (OR ONLY) As Ordered ONE (07:57)
[2023-09-20] MEDS: CEFUROXIME 1MG/0.1ML INTRACAMERAL INJ As Ordered ONE (07:58)
[2023-09-20] MEDS: LIDOCAINE 1% SDV 5ML VIAL As Ordered ONE (07:58)
[2023-09-20 08:14] VITALS: BP 138/84; TEMP 97.9; O2SAT 99
== END 2023-09-20 08:40 | disposition home or self-care (01) ==
LOC: M SDC 06:17
PROVIDERS: ATTEND Ophthalmology
DX: H25.12 Age-related nuclear cataract, left eye (principal); H40.1121 Primary open-angle glaucoma, left eye, mild stage; E11.9 Type 2 diabetes mellitus without complications; I48.91 Unspecified atrial fibrillation; Z86.73 Personal history of transient ischemic attack (TIA), and cerebral infarction without residual deficits; Z88.1 Allergy status to other antibiotic agents; Z87.891 Personal history of nicotine dependence; Z79.899 Other long term (current) drug therapy
CPT/HCPCS: 66991; C1783; J0697; J1097; J3010; V2632

== ENCOUNTER → 2023-11-24 | Outpatient (CLI) | payer MEDICARE ==
[~2023-11-24] MED LIST changes: -SILO8CAP PO; +SILO8CAP3 PO
== END ==
LOC: M RAD 11:09
PROVIDERS: ATTEND General Practice
DX: C34.90 Malignant neoplasm of unspecified part of unspecified bronchus or lung (principal)

== ENCOUNTER → 2023-12-02 | Outpatient (CLI) | payer MEDICARE | LOC: M ONCR 14:14 | PROVIDERS: ATTEND General Practice | DX: R91.1 Solitary pulmonary nodule (principal); Z79.01 Long term (current) use of anticoagulants; Z92.3 Personal history of irradiation; R19.09 Other intra-abdominal and pelvic swelling, mass and lump; Z87.891 Personal history of nicotine dependence; Z86.73 Personal history of transient ischemic attack (TIA), and cerebral infarction without residual deficits; Z86.79 Personal history of other diseases of the circulatory system; Z88.1 Allergy status to other antibiotic agents; Z79.82 Long term (current) use of aspirin; Z79.84 Long term (current) use of oral hypoglycemic drugs; Z79.899 Other long term (current) drug therapy; Z71.2 Person consulting for explanation of examination or test findings ==

== ENCOUNTER → 2024-01-02 | Outpatient (REF) | payer MEDICARE ==
[2024-01-02 11:48] LABS: BASO # 0.1 10^3/uL (0.0-0.2); BASO % 0.8 % (0.0-1.0); EOS # 0.2 10^3/uL (0.0-0.5); EOS % 2.8 % (0.0-3.0); HEMATOCRIT 47.5 % (42.0-52.0); HEMOGLOBIN 15.7 g/dl (13.5-17.5); LYMPH # 1.1 10^3/uL (1.5-5.0); LYMPH % 18.6 % (24.0-44.0); MEAN CORPUSCULAR HEMOGLOBIN 29.2 pg (27.0-33.0); MEAN CORPUSCULAR HGB CONC 33.1 g/dl (32.0-36.5); MEAN CORPUSCULAR VOLUME 88.5 fl (80.0-96.0); MONO # 0.5 10^3/uL (0.0-0.8); MONO % 8.5 % (2.0-8.0); NEUTROPHILS # 4.2 10^3/uL (1.5-8.5); PLATELET COUNT, AUTOMATED 119 10^3/uL (150-450); RED BLOOD COUNT 5.37 10^6/uL (4.30-6.10)
[2024-01-02 11:57] LABS: APPEARANCE, URINE CLEAR (CLEAR); BACTERIA, URINE AUTO NEGATIVE (NEGATIVE); BILIRUBIN, URINE AUTO NEGATIVE (NEGATIVE); BLOOD, URINE BLOOD 1+ (NEGATIVE); COLOR, URINE YELLOW (YELLOW); GLUCOSE, URINE (UA) AUTO NEGATIVE (NEGATIVE); KETONE, URINE AUTO NEGATIVE (NEGATIVE); LEUKOCYTE ESTERASE, URINE AUTO NEGATIVE (NEGATIVE); NITRITE, URINE AUTO NEGATIVE (NEGATIVE); PROTEIN, URINE AUTO NEGATIVE (NEGATIVE); RBC, URINE AUTO 5 /HPF (0-3); SPECIFIC GRAVITY URINE AUTO 1.012 (1.002-1.035); SQUAMOUS EPITHELIAL CELL UR AU 0 /HPF (0-6); WBC, URINE AUTO 0 /HPF (0-3)
[2024-01-02 12:04] LABS: HEMOGLOBIN A1c 6.8 % (4.0-6.0)
[2024-01-02 12:21] LABS: CREATININE, URINE 52.3 MG/DL
[2024-01-02 12:22] LABS: MAU/CREAT RATIO 19.1 MCG/MG (0.0-30.0)
[2024-01-02 12:24] LABS: PSA SCREENING 2.73 NG/ML (< 4.00)
[2024-01-02 12:27] LABS: FERRITIN 103.5 NG/ML (10.5-307.3); LDH LACTATE DEHYDROGENASE 161 U/L (120-246)
[2024-01-02 12:28] LABS: ALBUMIN 4.2 G/DL (3.2-5.2); ALKALINE PHOSPHATASE 66 U/L (46-116); ALT/SGPT 27 U/L (7.0-40); AST/SGOT 18 U/L (<34); BILIRUBIN,TOTAL 3.8 MG/DL (0.3-1.2); BLOOD UREA NITROGEN 25 MG/DL (9-23); CALCIUM LEVEL 9.8 MG/DL (8.3-10.6); CARBON DIOXIDE LEVEL 26 MMOL/L (20-31); CHLORIDE LEVEL 107 MMOL/L (98-107); CREATININE FOR GFR 0.82 MG/DL (0.70-1.30); FREE T4 1.17 NG/DL (0.89-1.76); GLOMERULAR FILTRATION RATE > 60.0 (>35); GLUCOSE, FASTING 138 MG/DL (74-106); IRON (FE) 71 UG/DL (65-175); PERCENT SATURATION 21.5 % (19.7-50.0); POTASSIUM SERUM 4.1 MMOL/L (3.5-5.1); SODIUM LEVEL 141 MMOL/L (136-145); THYROID STIMULATING HORMONE 1.274 uIU/ML (0.55-4.78); TOTAL IRON BINDING CAPACITY 330 UG/DL (250-425); TOTAL PROTEIN 6.8 G/DL (5.7-8.2)
== END ==
LOC: M LABDRAWC 11:02 → M LABWUC 11:02
PROVIDERS: ATTEND Nurse Practitioner Family
DX: I10 Essential (primary) hypertension (principal); E11.9 Type 2 diabetes mellitus without complications; E04.1 Nontoxic single thyroid nodule; I48.0 Paroxysmal atrial fibrillation; R63.4 Abnormal weight loss; Z12.5 Encounter for screening for malignant neoplasm of prostate
CPT/HCPCS: 36415; 80053; 81001; 82043; 82270; 82728; 83036; 83550; 83615; 83735; 84439; 84443; 85025; G0103

== ENCOUNTER → 2024-02-02 | Outpatient (REF) | payer MEDICARE | LOC: M LABDRAWC 11:45 | PROVIDERS: ATTEND Urology | DX: R97.20 Elevated prostate specific antigen [PSA] (principal) ==

== ENCOUNTER → 2024-05-30 | Outpatient (CLI) | payer MEDICARE | LOC: M RAD 11:16 | PROVIDERS: ATTEND General Practice | DX: C34.90 Malignant neoplasm of unspecified part of unspecified bronchus or lung (principal) ==

== ENCOUNTER → 2024-06-05 | Outpatient (CLI) | payer MEDICARE | LOC: M ONCR 14:17 | PROVIDERS: ATTEND General Practice | DX: C34.11 Malignant neoplasm of upper lobe, right bronchus or lung (principal); R19.09 Other intra-abdominal and pelvic swelling, mass and lump; Z79.01 Long term (current) use of anticoagulants; Z79.82 Long term (current) use of aspirin; Z79.84 Long term (current) use of oral hypoglycemic drugs; Z79.899 Other long term (current) drug therapy; Z88.1 Allergy status to other antibiotic agents ==

== ENCOUNTER → 2024-10-18 | Outpatient (CLI) | payer MEDICARE | LOC: M PLAIMG 12:09 | PROVIDERS: ATTEND Nurse Practitioner Family | DX: M54.50 Low back pain, unspecified (principal) ==

== ENCOUNTER → 2025-01-31 | Outpatient (CLI) | payer MEDICARE | LOC: M PLALAB 09:43 | PROVIDERS: ATTEND Physician Assistant Medical | DX: N40.1 Benign prostatic hyperplasia with lower urinary tract symptoms (principal) ==

== ENCOUNTER → 2025-05-29 | Outpatient (CLI) | payer MEDICARE | LOC: M RAD 10:32 | PROVIDERS: ATTEND General Practice | DX: C34.11 Malignant neoplasm of upper lobe, right bronchus or lung (principal) ==

== ENCOUNTER → 2025-06-05 | Outpatient (CLI) | payer MEDICARE ==
[~2025-06-05] MED LIST changes: -DOCU-160 PO; +STOO100C19 PO
== END ==
LOC: M ONCR 13:42
PROVIDERS: ATTEND General Practice
DX: R91.8 Other nonspecific abnormal finding of lung field (principal); I48.0 Paroxysmal atrial fibrillation; K31.89 Other diseases of stomach and duodenum; Z79.01 Long term (current) use of anticoagulants; Z79.82 Long term (current) use of aspirin; Z79.899 Other long term (current) drug therapy; Z86.73 Personal history of transient ischemic attack (TIA), and cerebral infarction without residual deficits; Z88.1 Allergy status to other antibiotic agents; Z87.891 Personal history of nicotine dependence; Z92.3 Personal history of irradiation

== ENCOUNTER → 2025-07-15 | Outpatient (REF) | payer MEDICARE ==
[2025-07-15 18:44] LABS: CALCIUM LEVEL 9.6 MG/DL (8.3-10.6); CARBON DIOXIDE LEVEL 30.0 MMOL/L (20-31); CHLORIDE LEVEL 104.0 MMOL/L (98-107); CREATININE FOR GFR 1.01 MG/DL (0.70-1.30); GLOMERULAR FILTRATION RATE 72.0 (>35); POTASSIUM SERUM 4.4 MMOL/L (3.5-5.1); SODIUM LEVEL 141.0 MMOL/L (136-145)
[2025-07-15 19:11] LABS: ESTIMATED AVERAGE GLUCOSE 154.0 MG/DL (60-110)
== END ==
LOC: M LAB REF 17:35 → M LABDRAWC 17:35
PROVIDERS: ATTEND Nurse Practitioner Family
DX: E11.9 Type 2 diabetes mellitus without complications (principal)